=== PATIENT | male | born 1985 | race Caucasian/White ===

== ENCOUNTER 2022-10-20 14:32 | Emergency (ER) | payer BC, SELFPAY ==
[2022-10-20 14:49] VITALS: BP 136/74; PULSE 70; RESP 16; TEMP 36.3; O2SAT 95; BMI 30.1
--- NOTE | 2022-10-20 15:06 | ED.NURSE ---
dr schilling aware that his last tetanus according to [facility] was 02/09/2011. pt states that he got hurt and needed a tetanus and it was 5 years ago at the [facility].
--- NOTE | 2022-10-20 16:00 | ED_ITS ---
HPI - General Adult General Date Seen: 10/20/22 Chief complaint: Laceration/Wound Stated complaint: left forearm cut by lens grinder Time Seen by Provider: 10/20/22 14:48 Source: patient Mode of arrival: ambulatory Limitations: no limitations History of Present Illness HPI narrative: Patient is a 37-year-old male who was at home using some sort of lens grinder that got away from him. He lacerated his left forearm through his glove. No complaints of numbness or loss of function. He believes his last tetanus was within 5 years. The [facility] does not corroborate that but he is quite certain. Related Data Home Medications Medication Instructions Recorded Confirmed No Known Home Medications 10/20/22 10/20/22 Allergies Allergy/AdvReac Type Severity Reaction Status Date / Time cephalexin Allergy Intermediate Chest Pain Verified 10/20/22 14:49 PFSH PFSH Social History Smoking Status: Never smoker How often do you have a drink containing alcohol: never AUDIT-C Alcohol total score: 0 Non-prescribed substance use: denies use Exam Narrative: Exam Narrative: Vital signs reviewed In general, alert, well-appearing male. Extremities: Examination of the left forearm shows a 1/2 cm laceration which extends into the upper subcutaneous tissue, there is no evidence of injury to deeper structures, no foreign body. Bleeding is controlled. Distal CMS normal. Skin: Warm dry and well perfused. Const: Vital Signs, click to edit/add: Vital Signs - 24 hr 10/20/22 14:49 Temperature 97.3 F L Pulse Rate [Right Pulse Oximeter] 70 Respiratory Rate 16 Blood Pressure [Ri ght Upper Arm] 136/74 Pulse Oximetry 95 Oxygen Delivery Me thod Room Air Documenting provider has reviewed patient's vital signs: yes Course Course Hospital Course: Procedure note: The wound was anesthetized using lidocaine with epinephrine, cleaned and explored. I used [address] 5 superficial simple interrupted sutures. He tolerated this well without immediate complication. A dressing is applied by the senior tech manufacturing engineering. Recommend routine wound care, suture removal in 7-10 days. Return for signs of infection Vital Signs Vital signs: Initial Vital Signs Temperature 97.3 F L 10/20/22 14:49 Temperature Source Temporal Artery Scan 10/20/22 14:49 Pulse Rate 70 10/20/22 14:49 Pulse Rhythm Regular 10/20/22 14:49 Respiratory Rate 16 10/20/22 14:49 Blood Pressure 136/74 10/20/22 14:49 Blood Pressure Mean 94 10/20/22 14:49 Blood Pressure Position Sitting 10/20/22 14:49 Pulse Oximetry 95 10/20/22 14:49 Oxygen Delivery Method Room Air 10/20/22 14:49 Vital Signs Temperature 97.3 F L 10/20/22 14:49 Pulse Rate 70 10/20/22 14:49 Respiratory Rate 16 10/20/22 14:49 Blood Pressure 136/74 10/20/22 14:49 Pulse Oximetry 95 10/20/22 14:49 Oxygen Delivery Method Room Air 10/20/22 14:49 Temperature 97.3 F L 10/20/22 14:49 Pulse Rate 70 10/20/22 14:49 Respiratory Rate 16 10/20/22 14:49 Blood Pressure 136/74 10/20/22 14:49 Pulse Oximetry 95 10/20/22 14:49 Oxygen Delivery Method Room Air 10/20/22 14:49 Discharge Plan Discharge Clinical Impression: Forearm laceration Patient Disposition: Home, Self-Care Condition: Improved Instructions: Laceration (DC) Additional Instructions: Suture removal 7-10 days. Return for signs of infection. Prescriptions: No Action No Known Home Medications Follow Up/Referrals: Wolfgang Garcia MD [Primary Care Provider] - Stand Alone Forms: MyHealth Info Instructions
== END 2022-10-20 15:18 | disposition home or self-care (01) ==
LOC: ED 15:16
PROVIDERS: Emergency Provider Emergency Medicine; PCP Family Medicine
DX: S51.812A Laceration without foreign body of left forearm, initial encounter (principal); W29.8XXA Contact with other powered hand tools and household machinery, initial encounter
CPT/HCPCS: 12001; 99283; 99284

== ENCOUNTER 2024-08-31 10:07 | Emergency (ER) | payer OTHER, SELFPAY ==
[2024-08-31] VITALS (7 sets, daily range): BP systolic 119–129; BP diastolic 68–79; PULSE 76–91; RESP 16; TEMP 36.6; O2SAT 93–96; BMI 32.3
--- OUTSIDE RECORDS SUMMARY | 2024-08-31 10:10 | XMS_ITS | Clinical Summary ---
Author Organization [facility] Address [address] [place] [id number] Care Team Providers Care Shirt Operator Name Role Phone Wolfgang Garcia MD Primary Care Provider [phone] Allergies Active Allergy Reactions Criticality Noted Date Comments Cephalexin Chest Pain 06/22/2011 Tightness in chest and shortness of breath developed 5 days after starting medication, resolved when discontinued use. Medications multivitamin (MVI) tablet Take 1 tablet by mouth once daily. Active Active Problems Problem Noted Date Diagnosed Date Nicotine addiction 01/24/2010 Immunizations Immunization Administration Dates Next Due Tdap 02/09/2011 Social History Tobacco Use Types Packs/Day Years Used Date Smoking Tobacco: Every Day Cigarettes 0.3 10 Smokeless Tobacco: Former Chew Tobacco Cessation:Ready to Q uit: No; Counseling Given: Yes Comments:5 cigarettes per day Alcohol Use Standard Drinks/Week Comments Yes 0 (1 standard drink = 0.6 oz pur e alcohol) 6 beers per week Sex and Gender Information Value Date Recorded Sex Assigned at Not on file Legal Sex Male 6:14 AM PUMPER HAND Gender Identity Not on file Sexual Orientation Not on file Obstetrics History Last Filed Vital Signs Vital Sign Reading Time Taken Comments Blood Pressure 120/72 11/13/2016 7:39 AM CDT Pulse 59 11/13/2016 7:39 AM CDT Temperature 36.8 C (98.2 F) 11/13/2016 7:39 AM CDT Respiratory Rate 16 11/22/2011 8:00 AM CDT Oxygen Saturation 99% 11/13/2016 7:39 AM CDT Inhaled Oxygen Concentration - - Weight 97.4 kg (214 lb 12.8 oz) 11/13/2016 7:39 AM CDT Height 176.5 cm (5' 9.5) 11/13/2016 7:39 AM CDT Body Mass Index 31.27 11/13/2016 7:39 AM CDT Plan of Treatment Health Maintenance Due Date Last Done Comments Depression screening for age 12+ 1996 HIV for age 15-65 01/14/1999 Hepatitis C screening for age 18-79 01/14/2002 Hepatitis B series for 19+ (1 of 3 - 19+ 3-dose series) 01/14/2003 BMI (ht and wt on same day) for age 18+ 11/13/2017 11/13/2016 Lipids for age 35-44 01/14/2019 Tetanus booster 02/09/2021 02/09/2011 (Comp leted outside of [facility]), 02/09/2011 COVID-19 vaccine series ( season) 2023 Influenza Vaccine (Season Ended) 2024 Tdap Completed 02/09/2011 Pneumococcal series for age 6-49 Aged Out No longer eligible based on patient's age to complete this topic Medical Devices Implanted Type Area Continuous Pickling Line Pickler Device Identifier Shelf Expiration Date Model / Serial / Lot Tube Vent Ped [id number] - [id number] Implanted:Qty: 1 on 11/21/2011 at [facility] Bilateral : Ear [employer] [id number] / / [id number] Description:see paper implan t sheet Insurance [facility] [employer] Care Teams Shirt Operator Relationship Specialty Start Date End Date Wolfgang Garcia MD PCP - General Family Practice 11/13/16
--- NOTE | 2024-08-31 10:16 | ED_ITS ---
HPI - Nausea/Vomiting/Diarrhea General Time Seen by Provider: 10:16 Date Seen: 08/31/24 Chief complaint: Diarrhea Stated complaint: Flu symptoms no getting better Time Seen by Provider: 08/31/24 10:14 Source: patient and RN notes reviewed Mode of arrival: ambulatory Limitations: no limitations History of Present Illness HPI Narrative: This 39-year-old male is presenting to the ER with nonbloody diarrhea. Today is Saturday, he started feeling sick on . He states he initially had chills but is not aware of fever, did not check his temperature. Continues with nonbloody diarrhea. He does get abdominal cramping. No one else is sick at home. He has not eaten any suspect foods, no travel. 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 He denies any nausea or vomiting with this, appetite is okay, no associated respiratory symptoms. He states he can not eat fine but food is just going through him. He has not been on any rec ent antibiotics, no history of C difficile colitis. MD elicited complaint: diarrhea Related Data Home Medications ?Medication ?Instructions ?Recorded ?Confirmed No Known Home Medications 10/20/2208/07 Allergies Allergy/AdvReac Type Severity Reaction Status Date / Time cephalexin Allergy Intermediate Chest Pain Verified 08/31/24 10:14 Review of Systems Status of ROS: Reports: 6 or more systems reviewed and unremarkable except as noted in History and below [facility] Social History Smoking Status: Never smoker How often do you have a drink containing alcohol: never AUDIT-C Alcohol total score: 0 Non-prescribed substance use: denies use Exam Const: Vital Signs, click to edit/add: Vital Signs - 24 hr 08/31/24 10:10 08/31/24 10:46 08/31/24 11:00 Temperature 97.9 F Pulse Rate 76 78 Pulse Rate [Right Pulse Oximeter] 91 Respiratory Rate 16 Blood Pressure Blood Pressure [Ri ght Upper Arm] 129/79 Pulse Oximetry 96 93 93 Oxygen Delivery Me thod Room Air 08/31/24 11:01 08/31/24 11:15 Temperature Pulse Rate 81 78 Pulse Rate [Right Pulse Oximeter] Respiratory Rate 16 Blood Pressure 119/68 Blood Pressure [Ri ght Upper Arm] Pulse Oximetry 93 Oxygen Delivery Me thod Room Air This 39-year-old male is alert, interactive, no apparent stress. Sclera clear, conjugate gaze. Symmetric facial function. Lungs are clear come good air entry, wheeze or crackles, no tachypnea. CV regular rate and rhythm, no murmur, normal S1-S2. Abdomen is soft, nontender, nondistended, bowel sounds are soft without concerning character at this time. He has no organomegaly, no rebound or guarding. Skin visualized thought rash, patient was ambulatory into the ED of his own accord. Documenting provider has reviewed patient's vital signs: yes Course Course ED Course: This patient is presenting with a diarrheal illness and not acute abdomen. Will check full complement of labs, give him a L of IV fluids while we are awaiting lab results. 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 Diarrhea is nonbloody, do doubt bacterial etiology like Salmonella, Campylobacter or C difficile. With his current presentation clinical exam, do not feel that any radiologic imaging is necessary but will consider based on outcome of his labs. At this time, think things like diverticulitis are not likely. Reevaluation(s) Time of Reevaluation #1: 11:27 Reevaluation #1: Have reviewed with patient his normal white count, normal electrolytes and liver functions. We did review that is C reactive protein is elevated but still can be from inflammation from a viral etiology. We discussed doing CT imaging but I do not feel clinically that this is necessary. He agrees in not doing imaging at this point. We did discuss signs and symptoms for return. Given the fact that he is [place] a farm, will send him with stool collection. Would not advocate antibiotics at this point. He is doing a good job of staying hydrated at home, will continue. Vital Signs Vital signs: Initial Vital Signs Temperature 97.9 F 08/31/24 10:10 Temperature Source Temporal Artery Scan 08/31/24 10:10 Pulse Rate 91 08/31/24 10:10 Pulse Rhythm Regular 08/31/24 10:10 Pulse Strength 3+ Normal 08/31/24 10:10 Respiratory Rate 16 08/31/24 10:10 Blood Pressure 129/79 08/31/24 10:10 Blood Pressure Mean 95 08/31/24 10:10 Blood Pressure Position Sitting 08/31/24 10:10 Pulse Oximetry 96 08/31/24 10:10 Oxygen Delivery Method Room Air 08/31/24 10:10 Vital Signs Temperature 97.9 F 08/31/24 10:10 Pulse Rate 91 08/31/24 10:10 Respiratory Rate 16 08/31/24 10:10 Blood Pressure 129/79 08/31/24 10:10 Pulse Oximetry 96 08/31/24 10:10 Oxygen Delivery Method Room Air 08/31/24 10:10 Temperature 97.9 F 08/31/24 10:10 Pulse Rate 78 08/31/24 11:15 Respiratory Rate 16 08/31/24 11:01 Blood Pressure 119/68 08/31/24 11:01 Pulse Oximetry 93 08/31/24 11:15 Oxygen Delivery Method Room Air 08/31/24 11:01 Medications Administered Medications: Discontinued Medications Generic Name Dose Route Start Last Admin Trade Name Freq PRN Reason Stop Dose Admin Sodium Chloride 1,000 mls @ 1,000 mls/hr 08/31/24 10:27 08/31/24 10:41 0.9 % Sodium Chloride 1000 Ml IV 08/31/24 11:26 1,000 mls/hr .Q1H SATNAM Administration MDM - Nausea/Vomiting/Diarrhea Lab Data Attestation: I reviewed the patient's lab results. Labs: Lab Results 08/31/24 Range/Units 10:20 WBC 8.03 (4.50-11.00) K/uL RBC 5.29 (4.30-5.90) m/uL Hgb 14.4 (13.5-17.5) gm/dL Hct 44.1 (37.0-53.0) % MCV 83 (80-100) fL MCH 27 (26-34) pg MCHC 33 (32-36) gm/dL RDW Coeff of Thalia 13.2 (11.5-15.5) % Plt Count 249 (140-440) K/uL Neut % (Auto) 71.0 (42.0-72.0) % Lymph % (Auto) 17.4 L (20-44) % [place] % (Auto) 8.0 (0.0-11.0) % Eos % (Auto) 2.5 (0.0-7.0) % Baso % (Auto) 0.2 (0.0-3.0) % Neut # (Auto) 5.70 (1.7-7.0) K/uL Lymph # (Auto) 1.40 (0.90-2.90) K/uL [place] # (Auto) 0.60 (0.00-0.90) K/UL Eos # (Auto) 0.20 (0.00-0.50) K/uL Baso # (Auto) 0.02 (0.00-0.30) K/uL Abs Immat Gran (auto) 0.07 (0.00-0.30) K/uL Imm/Tot Granulo (auto) 0.9 % Sodium 139 (135-149) mmol/L Potassium 4.0 (3.6-5.1) mmol/L Chloride 103 (96-114) mmol/L Carbon Dioxide 29 (20-32) mmol/L Anion Gap 7 (7-15) mEq/L BUN 13 (5-24) mg/dL Creatinine 1.0 (0.5-1.5) mg/dL Estimated Creat Clear 101.39 Estimated GFR 98 ml/min Glucose 130 H (60-115) mg/dL Lactate 2.0 H (0.5-1.9) mmol/L Calcium 9.0 (8.4-10.6) mg/dL Total Bilirubin 0.5 (0.1-1.5) mg/dL AST 33 (12-35) U/L ALT 50 (4-50) U/L Alkaline Phosphatase 64 (40-150) U/L C-Reactive Protein 6.0 H (0.5-1.0) mg/dL Total Protein 7.3 (6.0-8.3) g/dL Albumin 4.2 (3.3-5.0) g/dL Lipase 84 (23-300) U/L Discharge Plan Discharge Clinical Impression: Diarrhea Qualifiers: Diarrhea type: presumed infectious Qualified Code(s): R19.7 - Diarrhea, unspecified Patient Disposition: Home, Self-Care Condition: Stable Instructions: Acute Diarrhea (ED), Nutrition Tips for Relief of Diarrhea (ED) Additional Instructions: Continue to drink adequate fluids to stay hydrated. At this point, you can try some Imodium or Pepto-Bismol to see if it helps with diarrhea. Will send you with stool collection kit and if ongoing diarrhea, should collect these tests and return them. If you develop severe abdominal pain, fever develops, developed bloody diarrhea, do return to the ER for further evaluation. Review the handout on nutrition tips for diarrhea, try to employ some of these to help decrease diarrhea. Hopefully will be improving over the next few days and if not, may need re-evaluation as well. Activity Level: Activity as Tolerated Prescriptions: No Action No Known Home Medications Follow Up/Referrals: Wolfgang Garcia MD [Primary Care Provider, Family Practice] Stand Alone Forms: Associated Material Processing Info Instructions
[2024-08-31 10:40] LABS: Basophils Absolute Auto 0.02 K/uL (0.00-0.30); Basophils Percent Auto 0.2 % (0.0-3.0); Eosinophils Percent Auto 2.5 % (0.0-7.0); Hematocrit 44.1 % (37.0-53.0); Hemoglobin* 14.4 gm/dL (13.5-17.5); Immature Granulocytes Abs Auto 0.07 K/uL (0.00-0.30); Immature Granulocytes Pct Auto 0.9 %; Lymphocytes Percent Auto 17.4 % (20-44); Mean Corpuscular HGB Conc 33 gm/dL (32-36); Mean Corpuscular Hemoglobin 27 pg (26-34); Mean Corpuscular Volume 83 fL (80-100); Platelet Count* 249 K/uL (140-440); RDW Coefficient of Variation % 13.2 % (11.5-15.5); Red Blood Count 5.29 m/uL (4.30-5.90); White Blood Count* 8.03 K/uL (4.50-11.00)
[2024-08-31] MEDS: 0.9 % SODIUM CHLORIDE 1000 ml 1,000 ML IV (10:41)
[2024-08-31 10:52] LABS: Slide Review Reflex No
[2024-08-31 10:55] LABS: Albumin* 4.2 g/dL (3.3-5.0); Chloride* 103 mmol/L (96-114)
[2024-08-31 10:56] LABS: Sodium* 139 mmol/L (135-149)
[2024-08-31 10:58] LABS: Alanine Aminotransferase* 50 U/L (4-50); Anion Gap 7 mEq/L (7-15); Aspartate Amino Transferase* 33 U/L (12-35); Blood Urea Nitrogen* 13 mg/dL (5-24); Carbon Dioxide* 29 mmol/L (20-32); Est. Creatinine Clearance* 101.39; Estimated Glomerular Filt Rate 98 ml/min; Total Protein* 7.3 g/dL (6.0-8.3)
[2024-08-31 10:59] LABS: Alkaline Phosphatase* 64 U/L (40-150); Bilirubin Total* 0.5 mg/dL (0.1-1.5); Glucose* 130 mg/dL (60-115); Lipase* 84 U/L (23-300)
== END 2024-08-31 11:54 | disposition home or self-care (01) ==
PROVIDERS: Emergency Provider Family Medicine; PCP Family Medicine
DX: R19.7 Diarrhea, unspecified (principal); R68.83 Chills (without fever); R10.9 Unspecified abdominal pain
CPT/HCPCS: 36415; 80053; 83605; 83690; 85025; 86140; 87045; 87046; 87177; 87209; 87427; 87493; 99283; 99284; J7030